=== PATIENT | male | born 1950 | race Caucasian/White ===

== ENCOUNTER 2024-03-09 15:40 | Emergency (ER) | payer MEDICARE, MEDICAID, SELFPAY ==
--- NOTE | 2024-03-09 15:47 | PC.NURSE ---
Family arrived at bedside Dr. Castro speaking to family about code status and medical condition of pt
--- NOTE | 2024-03-09 15:48 | PC.NURSE ---
Family agreed to make pt DNR DNI and comfort care
[2024-03-09 15:50] VITALS: RESP 22; RESP 36
--- NOTE | 2024-03-09 15:52 | PC.NURSE ---
Family updated per Dr Castro
[2024-03-09 15:58] VITALS: BP 145/121; PULSE 116; RESP 40; TEMP 37.3; O2SAT 82; BMI 29.0
[2024-03-09] MEDS: MORPHINE 4MG/ML SYRINGE 4 MG IV (16:20)
--- NOTE | 2024-03-09 16:20 | PC.NURSE ---
speaking to hospitalist
[2024-03-09] MEDS: SODIUM CHLORIDE 0.9% 10ML VIAL 10 ML IV (16:21)
[2024-03-09] MEDS: LORazepam 2MG/ML VIAL 2 MG IV (16:21)
[2024-03-09 16:23] LABS: Lactate Venous 13.5 mmol/L (0.4-2.0); VBG Base Excess -16.4 mmol/L (-2.4-2.3); VBG HCO3 12.5 mmol/L (23-30); VBG Oxygen Saturation 46.9 % (50-70); VBG PCO2 36.7 mmol/L (35-51); VBG PH 7.15 mmol/L (7.31-7.41); VBG PO2 34.6 mmol/L (28-40); VBG Total CO2 13.6 mmol/L (23-27)
[2024-03-09] MEDS: GLYCOPYRROLATE 0.2 MG/ML 1ML VIAL 0.200000000000000011 MG IV (16:27)
--- NOTE | 2024-03-09 16:27 | PC.NURSE ---
DR BARRIOS SPEAKING WITH DR JEFFRIES FOR ADMISSION
[2024-03-09 16:30] VITALS: BP 106/57; PULSE 122; RESP 41; O2SAT 95
--- NOTE | 2024-03-09 16:31 | PC.NURSE ---
Dr Castro at bedside updating family
--- NOTE | 2024-03-09 16:40 | [facility].EDGENADL ---
Discharge Plan Disposition Chief Complaint: Altered Mental Status Clinical Impressions Clinical Impression: Acute encephalopathy, Metabolic acidosis, Need for comfort care, Critical limb ischemia of both lower extremities, Respiratory failure Discharge ED Provider: Jessica Castro General Adult HPI General Chief complaint: Altered Mental Status Stated complaint: AMS Time Seen by Provider: 03/09/24 15:43 Mode of Arrival: EMS Source of Information: Relative and EMS Limitations: Altered Mental Status Description of Symptoms (Recalled from ER Triage Doc. by RN): Pt reported to ED via EMS.EMS reports family called due to AMS of pt. EMS states pt had surgery 2 weeks ago on left foot. Left foot is purple cold and pulseless with open surgical wound with foul drainage. Family states pt has been declining for the past 3 days. Pt has a weak popliteal pulse on left leg. PT has 3+ edema on LLE. Pts RL from mid thigh down is mottled and cold. Pt is disorented x4 GCS 8. Pt has open surgical wound left groin with purlent sanguinous drainage. Pt has reno on LUE from previous surgery. Pt is on 100% O2 on CPAP pt is not normally on O2 History of Present Illness HPI narrative: Patient is a 73-year-old male brought in with altered mental status and respiratory depression. Had recent vascular surgery his left lower extremity. Has not had much to eat or drink over the last several days has increasing encephalopathy. Per family members at the bedside he is DNR. Further history unable to be obtained for the patient given his clinical status. Related Data Allergies Allergy/AdvReac Type Severity Reaction Status Date / Time No Known Allergies Allergy Verified 03/09/24 16:30 [facility] Disclaimer: The information contained in this section may have been updated after the patient was seen, as this information can be updated by other users. Social History Smoking Status: Current every day smoker alcohol intake: never current occupational status: other Travel in the last 8 weeks: None ROS Obtained: Yes All systems reviewed & no additional complaints except as documented Physical Exam General General appearance: obtunded Respiratory Respiratory exam: Present other (Patient having agonal respirations currently on noninvasive positive pressure ventilation) Cardiovascular Cardiovascular exam: Present other (Cool extremities particular the right lower extremity he has mottled and very cold right lower extremity) Abdominal Exam Abdominal exam: Present other (Left lower quadrant recent surgical site there is active purulent foul-smelling drainage) Extremities Exam Extremities exam: Present other (Left lower extremity dusky poor perfusion right lower extremity very cool with mottled perfusion as well) Neurological Exam Neurological exam: Absent alert Expanded Neurological Exam Coma scale eye opening: To pain Coma scale motor response: Withdraws to pain Coma scale verbal response: None Coma scale total: 7 Medical Decision Making Madhu Inquiry Pt receiving controlled substance: No Vital Signs: 03/09/24 15:58 03/09/24 16:30 Temperature 99.2 F Temperature Source Axillary Pulse Rate 122 H Pulse Rate [Left] 116 H Respiratory Rate 40 H 41 H Blood Pressure 106/57 L Blood Pressure [Right Arm] 145/121 H Blood Pressure Mean [Right Arm] 129 02 Sat by Pulse Oximetry 82 L 95 Oxygen Delivery Method CPAP BiPAP Oxygen Flow Rate (LPM) 100 Lab Data Lab Results 03/09/24 15:48: VBG pH 7.15 L, VBG pCO2 36.7, VBG pO2 34.6, VBG HCO3 12.5 L, VBG Total CO2 13.6 L, VBG O2 Saturation 46.9 L, VBG Base Excess -16.4 L, VBG Lactic Acid 13.5 H Orders (Tests/Meds): ED MEDICATIONS Generic Name Dose Route Start Last Admin Trade Name Freq PRN Reason Stop Dose Admin Sodium Chloride 10 ml 03/09/24 15:58 03/09/24 16:21 Sodium Chloride 0.9% 10ml Vial IV 04/08/24 15:57 10 ml NEEDED PRN Administration to Dilute Lorazepam inj Discontinued Medications Generic Name Dose Route Start Last Admin Trade Name Freq PRN Reason Stop Dose Admin Glycopyrrolate 0.2 mg 03/09/24 15:59 03/09/24 16:27 Glycopyrrolate 0.2 Mg/Ml 1ml Vial IV 03/09/24 16:00 0.2 mg ONCE ONE Administration Lorazepam 2 mg 03/09/24 15:58 03/09/24 16:21 Lorazepam 2mg/Ml Vial IV 03/09/24 15:59 2 mg ONCE ONE Administration Morphine Sulfate 4 mg 03/09/24 15:58 03/09/24 16:20 Morphine 4mg/Ml Syringe IV 03/09/24 15:59 4 mg ONCE ONE Administration ORDERS Category Date Time Status Venous Blood Gas Routine RT 03/09/24 15:48 Completed Medical Decision Narrative: 73-year-old presents today obtunded with a GCS of 7 not protecting his airway. Initial blood gas showed a pH of 7.15 with lactic acid of 13.5 primary metabolic acidosis. Differential includes ischemic extremities, mesenteric ischemia, septic shock etc. Patient is critically ill. Patient's brother and son were at the bedside we had a goals of care discussion and they both stated that the patient was DNR and would not have wanted any aggressive intervention done in this particular situation. I also spoke with his son Harjit who is in [place] told him of his poor prognosis and the options and everyone to be in agreement that the patient since his in 2020 would have wanted comfort care in the situation where he is at the end of life. The rest of his family showed up answer questions and everybody is in agreement with this plan of action. Therefore no aggressive diagnostic tests were done. Patient was not intubated but is currently on noninvasive positive pressure ventilation in hopes to keep him alive long enough for his son to come to [place] to be with him and his last moments. Will not do any type of CT scanning or other infectious testing as everyone agreed on comfort care and. Morphine and Ativan autopilot were ordered. I discussed the case with Dr. Wills who agreed to admit the patient for further comfort care measures until his passing. Critical Care Critical Care Time Critical Care Time: Yes Attestation: On 03/09/24, the high probability of a clinically significant, sudden or life threatening deterioration of the following system(s) required my full and direct attention, intervention and personal management. The time I documented below is in addition to time spent performing reported procedures but includes the following listed in this critical care notation. Total Time Total Critical Care Time: 35
--- NOTE | 2024-03-09 16:48 | PC.NURSE ---
Report called to Linda Munoz
--- NOTE | 2024-03-09 17:04 | PC.NURSE ---
DR BARRIOS AT BEDSIDE TO UPDATE PT
--- NOTE | 2024-03-09 17:19 | PC.NURSE ---
Dr Castro announced time of 0007
--- NOTE | 2024-03-09 17:37 | PC.NURSE ---
spoke with [employer] about pt expiration.
--- NOTE | 2024-03-09 17:38 | PC.NURSE ---
Called [facility] and spoke to Eyal and was told Eyal would call me back
--- NOTE | 2024-03-09 17:47 | PC.NURSE ---
[facility] called back spoke to Eyal [place] PT is ruled out for all donations
--- NOTE | 2024-03-09 18:10 | PC.NURSE ---
[employer] arrived
--- NOTE | 2024-03-09 19:18 | PC.NURSE ---
[facility] personnel here to collect pt.
[2024-03-09 19:28] VITALS: BP 0/0; PULSE 0; RESP 0; TEMP -17.7; TEMP 0; O2SAT 0
[2024-03-09 20:21] LABS: Reflex Lactic Add Lactic Reflex
== END 2024-03-09 19:28 | disposition expired ==
LOC: ER 16:34 → 2ND 16:39 → ER 17:40
PROVIDERS: Emergency Provider Student in an Organized Health Care Education/Training Program
DX: I46.9 Cardiac arrest, cause unspecified (principal); E87.20 Acidosis, unspecified; G93.40 Encephalopathy, unspecified; R74.02 Elevation of levels of lactic acid dehydrogenase [LDH]; I70.223 Atherosclerosis of native arteries of extremities with rest pain, bilateral legs; Z51.5 Encounter for palliative care
CPT/HCPCS: 82803; 96374; 96375; 99291; J2060; J2270